=== PATIENT | female | born 1990 | race Caucasian/White ===

== ENCOUNTER 2019-07-09 11:35 | Emergency (ER) | payer SELFPAY ==
[2019-07-09 11:39] VITALS: BP 140/84
--- NOTE | 2019-07-09 12:16 | ER Document Report ---
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 She states she was at [place] home with no medication. She states the last time she had heroin crystal meth and cocaine was last Friday. She states she still is having all of the insomnia anxiety shaking cannot sit still. She states she was discharged yesterday from [place]. She denies any nausea or vomiting at this time. She states she does not have menstrual cycles. Patient states her ultimate goal is to get some medication in here to help her with her symptoms and get discharged with a couple days worth of medication to control her symptoms at home. I have greeted and performed a rapid initial assessment of this patient. A comprehensive ED assessment and evaluation of the patient, analysis of test results and completion of medical decision making process will be conducted by an additional ED providers. Physical Exam - Vital signs Vitals: Temp Pulse Resp BP Pulse Ox 98.1 F 111 H 22 H 140/84 H 100 07/09/19 11:38 07/09/19 11:38 07/09/19 11:38 07/09/19 11:38 07/09/19 11:38 Course - Vital Signs Vital signs: Temp Pulse Resp BP Pulse Ox 98.1 F 111 H 22 H 140/84 H 100 07/09/19 11:38 07/09/19 11:38 07/09/19 11:38 07/09/19 11:38 07/09/19 11:38
[2019-07-09 13:13] LABS: APPEARANCE,URINE SLIGHTLY-CLOUDY; BILIRUBIN,URINE NEGATIVE (NEGATIVE); COLOR,URINE YELLOW; GLUCOSE, URINE NEGATIVE (NEGATIVE); KETONES,URINE NEGATIVE (NEGATIVE); LEUKOCYTE ESTERASE,URINE TRACE (NEGATIVE); NITRITE,URINE NEGATIVE (NEGATIVE); PROTEIN,URINE NEGATIVE (NEGATIVE); URINE SPECIFIC GRAVITY 1.011; UROBILINOGEN,URINE NEGATIVE mg/dL (<2.0)
[2019-07-09 13:30] LABS: URINE AMPHETAMINES SCREEN NEGATIVE; URINE BARBITURATES SCREEN NEGATIVE; URINE BENZODIAZEPINES SCREEN NEGATIVE; URINE COCAINE SCREEN NEGATIVE; URINE MARIJUANA (THC) SCREEN UNCONFIRMED POSITIVE; URINE METHADONE SCREEN NEGATIVE; URINE PHENCYCLIDINE SCREEN NEGATIVE
--- NOTE | 2019-07-09 18:14 | EKG REPORT ---
SEVERITY:- NORMAL ECG - SINUS RHYTHM : Confirmed by: Manohar Morillo MD 09-Jul-2019 18:13:16
== END 2019-07-09 16:45 | disposition left against medical advice (07) ==
LOC: ER 11:35
DX: F41.9 Anxiety disorder, unspecified (principal); G47.00 Insomnia, unspecified; Z53.20 Procedure and treatment not carried out because of patient's decision for unspecified reasons
CPT/HCPCS: 80307; 81001; 93005; 93010; 99281

== ENCOUNTER 2019-09-28 18:36 | Emergency (ER) | payer SELFPAY ==
--- NOTE | 2019-09-28 18:56 | ER Document Report ---
HPI - HPI Patient complains to provider of: vaginal discharge Time Seen by Provider: 09/28/19 18:48 Onset: Other Onset/Duration: Persistent Quality of pain: No pain Context: 29-year-old female presents emergency department with possible STD. Reports she had unprotected sex and now she is having heavily a vaginal discharge. Denies pain with void. Denies urinary frequency. Denies fever vomiting diarrhea. Reports she did have abdominal cramping earlier but none now. Also reports she has not had a menses in 5 years until recently when she is having some random bleeding. Reports she believes she was not having menses due to a history of drug abuse. Patient reports that she did go the health department in [facility] but has not followed back up with them. Associated Symptoms: None Exacerbated by: Denies Relieved by: Denies Similar symptoms previously: No Recently seen / treated by doctor: No - REPRODUCTIVE Reproductive: DENIES: : Past Medical History - General Information source: Patient Last Menstrual Period: Irregular - Social History Smoking Status: Current Every Day Smoker Cigarette use (# per day): Yes Frequency of alcohol use: None Drug Abuse: None Lives with: Friend Family History: None Patient has suicidal ideation: No Patient has homicidal ideation: No - Medical History Medical History: Negative Surgical Hx: Negative Vertical Provider Document - CONSTITUTIONAL Agree With Documented VS: Yes Exam Limitations: No Limitations General Appearance: WD/WN, No Apparent Distress - INFECTION CONTROL TRAVEL OUTSIDE OF THE [place] IN LAST 30 DAYS: No - HEENT HEENT: Atraumatic, Normocephalic. negative: Conjuctival Injection - NECK Neck: Normal Inspection, Supple. negative: Lymphadenopathy-Left, Lymphadenopathy-Right - RESPIRATORY Respiratory: Breath Sounds Normal, No Respiratory Distress - CARDIOVASCULAR Cardiovascular: Regular Rate, Regular Rhythm - GI/ABDOMEN Gastrointestinal: Abdomen Soft, Abdomen Non-Tender - REPRODUCTIVE Female Genitalia: Normal Inspection. negative: CMT, Adnexal Pain-Right, Adnexal Pain-Left - BACK Back: negative: CVA Tenderness-Right, CVA Tenderness-Left - MUSCULOSKELETAL/EXTREMETIES Musculoskeletal/Extremeties: MAEW, FROM, Non-Tender - NEURO Level of Consciousness: Awake, Alert, Appropriate Motor/Sensory: No Motor Deficit - DERM Integumentary: Warm, Dry Course - Re-evaluation Re-evalutation: 09/28/19 18:55 This 29-year-old female presents with reports of possible STD exposure. Reports unprotected sex recently not having vaginal discharge. Also is worried that she may be . 09/28/19 Patient was instructed on trichomonas and BV. She reports she would like to be treated for STDs because she now has to go to work by 9:00 at the [employer]. Patient denies urinary symptoms at this time. Laboratory 09/28/19 09/28/19 09/28/19 18:59 18:59 19:27 Urine Color YELLOW Urine Appearance CLOUDY Urine pH 8.0 Ur Specific Victor 1.015 Urine Protein NEGATIVE Urine Glucose (UA) NEGATIVE Urine Ketones NEGATIVE Urine Blood NEGATIVE Urine Nitrite NEGATIVE Urine Bilirubin NEGATIVE Urine Urobilinogen NEGATIVE Ur Leukocyte Esterase LARGE H Urine WBC (Auto) 9 Urine RBC (Auto) 29 U Hyaline Cast (Auto) 1 Squamous Epi Cells Auto 15 Amorphous Sediment Auto TRACE Urine Mucus (Auto) RARE Urine Ascorbic Acid 20 H Urine HCG, Qual NEGATIVE Epi Cells (Wet Prep) 3+ EPITHELIALS SEEN Bacteria (Wet Prep) 4+ BACTERIA SEEN Trichomonas (Wet Prep) TRICHOMONAS SEEN Vaginal WBC 3+ WBCS SEEN Vaginal Yeast NO YEAST SEEN Chlamydia DNA (PCR) NOT DETECTED N.gonorrhoeae DNA (PCR) NOT DETECTED STD cultures negative - Vital Signs Vital signs: Temp Pulse Resp BP Pulse Ox 98.1 F 106 H 20 139/85 H 99 09/28/19 18:40 09/28/19 18:40 09/28/19 18:40 09/28/19 18:40 09/28/19 18:40 Procedures - Pelvic Exam Pelvic exam Time completed: 19:29 Cultures obtained: No Wet prep obtained: Yes Herpes culture obtained: No POC sent to lab: No Foreign body removed: No Bimanual exam performed: Yes Witnessed by: andre VELASQUEZ Discharge - Discharge Clinical Impression: Vaginal discharge, Trichomonas infection, Bacterial vaginosis Condition: Stable Disposition: HOME, SELF-CARE Instructions: Azithromycin ([facility]), Chlamydia ([facility]), Metronidazole ([facility]), [facility], Rocephin ([facility]), Trichomonas Infection ([facility]), Vaginosis, Bacterial ([facility]) Additional Instructions: *You have been evaluated for vaginal discharge, STD exposure, bacterial vaginosis, trichomonas *You may call the culture nurse at [phone] for your STD results [id number] *Take medication as prescribed for your BV and trichomonas You have been treated with Rocephin and Zithromax for gonorrhea and chlamydia *Follow up with your [employer] [employer] or the health department for recheck *Avoid sexual intercourse until follow up *Always use protection during sex *Return to ED for worsening condition, changes, needs Monitor your blood pressure. Your blood pressure was elevated today. This may be because you were anxious, in pain or because you need medication. It is important to follow up with your primary care provider for full evaluation. Prescriptions: Metronidazole [Flagyl 500 mg Tablet] 500 mg PO BID #14 tablet Forms: Elevated Blood Pressure
[2019-09-28 19:16] LABS: AMORPHOUS SEDIMENT,URINE TRACE /HPF; APPEARANCE,URINE CLOUDY; BILIRUBIN,URINE NEGATIVE (NEGATIVE); COLOR,URINE YELLOW; GLUCOSE, URINE NEGATIVE (NEGATIVE); KETONES,URINE NEGATIVE (NEGATIVE); LEUKOCYTE ESTERASE,URINE LARGE (NEGATIVE); NITRITE,URINE NEGATIVE (NEGATIVE); PROTEIN,URINE NEGATIVE (NEGATIVE); URINE SPECIFIC GRAVITY 1.015; UROBILINOGEN,URINE NEGATIVE mg/dL (<2.0)
[2019-09-28 19:44] LABS: BACTERIA (WET MOUNT) 4+ BACTERIA SEEN; EPITHELIALS (WET MOUNT) 3+ EPITHELIALS SEEN; T.VAGINALIS (WET MOUNT) TRICHOMONAS SEEN; WBCS (WET MOUNT) 3+ WBCS SEEN; YEAST (WET MOUNT) NO YEAST SEEN
[2019-09-28] MEDS ORDERED: CEFTRIAXONE INJ 250 MG VIAL IM ONE (20:03)
[2019-09-28] MEDS ORDERED: METRONIDAZOLE 500 MG TABLET PO ONE (20:03)
[2019-09-28] MEDS ORDERED: AZITHROMYCIN 250 MG TABLET PO ONE (20:04)
[2019-09-28] MEDS ORDERED: LIDOCAINE 1% INJ-PF (10 MG/ML) 30 ML SDV INJ ONE (20:04)
[2019-09-28 20:35] VITALS: BP 119/77
[2019-09-28 20:40] LABS: CHLAM PCR NOT DETECTED (NOT DETECT)
== END 2019-09-28 20:37 | disposition home or self-care (01) ==
LOC: ER 18:36
DX: N76.0 Acute vaginitis (principal); B96.89 Other specified bacterial agents as the cause of diseases classified elsewhere; A59.00 Urogenital trichomoniasis, unspecified; Z20.2 Contact with and (suspected) exposure to infections with a predominantly sexual mode of transmission; R10.9 Unspecified abdominal pain; F17.210 Nicotine dependence, cigarettes, uncomplicated
CPT/HCPCS: 99283; 96372; 87210; 81025; 81001; 87491; 87591; J3490; J0696